=== PATIENT | female | born 1990 | race African-American/Black ===

== ENCOUNTER 2019-05-06 09:38 | Inpatient (IN) ==
[2019-05-06] MEDS ORDERED: ROMAZICON IV ONE (09:51)
--- NOTE | 2019-05-06 10:02 | PROVIDER DOCUMENTATION ---
HPI-General Adult - General Chief Complaint: Altered Mental Status Stated Complaint: UNRESPONSIVE Time Seen by Provider: 05/06/19 09:50 Source: EMS Allergies/Adverse Reactions: Patient Allergies Allergy/AdvReac Type Severity Reaction Status Date / Time No Known Allergies Allergy Verified 05/06/19 10:24 Home Medications: Home Medication List Medication Instructions Recorded Confirmed Last Taken Type Iron,Fm,Ps/Folic/B,C18/L.casei 1 tab PO DAILY 05/06/19 05/06/19 04/12/19 History [Fusion Plus Capsule] Labetalol HCl [Trandate] 1 tab PO BID 05/06/19 05/06/19 05/06/19 History - History of Present Illness -Gen Adult Nature of Presenting Problems: Brought in by EMS. Family had called since pt was unresponsive, suspect that she may have overdosed on Xanax. Does not have prescription for those, buys on the street. She is non verbal, thus has no complaints Review of Systems - Adult - REVIEW OF SYSTEMS - ADULT ROS:: unobtainable per condition Constitutional: reports: no symptoms reported Eyes: reports: no symptoms reported Neurological: reports: see HPI Past History - Adult - PAST MEDICAL HISTORY-ADULT Review of Records: reports: Medications Reviewed Major Childhood Illnesses: reports: denies history Cardiovascular: reports: denies history Respiratory: reports: denies history Gastrointestinal: reports: denies history Obstetrical/Gynecological: reports: denies history Genitourinary: reports: denies history Musculoskeletal: reports: denies history Neurological: reports: denies history Endocrine/Immune: reports: denies history Other Conditions: reports: denies history - PRIOR SURGERIES/PROCEDURES Surgical/Procedure History: reports: , hernia repair - IMMUNIZATION STATUS Childhood Immunizations: See Nurse Assessment Flu Vaccine: See Nurse Assessment - FAMILY HISTORY Family History: reviewed, not pertinent Physical Exam-General - PHYSICAL EXAM-ADULT Initial Vital Signs Reviewed: Yes - CONSTITUTIONAL General Appearance: appears well, mild distress - EYES Eyes: pink conjunctivae, other (pupils constricted, not pinpoint, no reaction to light) - HEAD, EARS, NOSE, MOUTH & THROAT HENMT: normocephalic/atraumatic, moist mucous membranes, normal ENT inspection, other (moves head when touched mouth with tongue depressor) - NECK Neck: full range of motion, supple - RESPIRATORY Respiratory: lungs clear, normal breath sounds, no respiratory distress, no accessory muscle use - CARDIOVASCULAR Cardiovascular: regular rate, rhythm, no edema, no murmur - GASTROINTESTINAL (ABDOMEN) Abdominal Exam: soft, other (mild suprapubic tenderness) - MUSCULOSKELETAL Extremity: non-tender, normal inspection, no pedal edema DTR: bicep (R): 2+, bicep (L): 2+, knee (R): 2+, knee (L): 2+, ankle (R): 2+, ankle (L): 2+ - SKIN Integumentary: normal color, normal turgor, warm/dry - NEUROLOGIC Neurologic: other (untestable, no response to verbal stimuli) - PSYCHIATRIC Psych/Mental Status: other (unresponsive to verbal stimuli) Progress - PLAN OF CARE/RESULTS Progress/Plan/Lab Results: Orders Category Date Time Status ALCOHOL BLOOD Stat Lab 05/06/19 09:51 Uncollected CBC WITH DIFF [HEME] Stat Lab 05/06/19 09:50 Uncollected COMPREHENSIVE METABOLIC PANEL [CHEM] Stat Lab 05/06/19 09:51 Uncollected URINALYSIS W/POSS RFLX CULT [URINALYSIS] Stat Lab 05/06/19 09:50 Uncollected URINE DRUG SCREEN Stat Lab 05/06/19 09:51 Uncollected Flumazenil [Romazicon] Med 05/06/19 09:51 Discontinued 0.2 mg IV NOW ONE Result Diagrams: 05/06/19 10:02 05/06/19 10:02 - REASSESSMENT Reassessment #1 Time Reassessed: 11:53 (pt has gone back to sleep, snoring) Reassessment #3 Time Reassessed: 14:30 (still very somulent) Status: unchanged Reassessment #2 Time Reassessed: 12:50 (vomited, will place NG) Status: worsening - EKG 1 Time of EKG reading by physician:: 09:45 EKG Read and Signed by:: Magdy Ordoñez EKG Interpretation (*Must complete 3 of following elements*): Abnormal Rate: 65 Rhythm: NSR QRS: normal AL Interval: normal ST Wave: normal Comments: prolonged QT Departure - Departure Date of Disposition Decision: 05/06/19 Time of Disposition Decision: 14:47 DIAGNOSIS: UTI (urinary tract infection) Accidental medication overdose Qualifiers: Encounter type: initial encounter Qualified Code(s): T50.901A - Poisoning by unspecified drugs, medicaments and biological substances, accidental (unintentional), initial encounter Disposition: ADMITTED INPATIENT 09 Certified Medical Emergency: Emergent Condition: Stable - Critical Care Note This patient required my direct & personal management of CC.: No Attestation - Physician/ WAYNE Attestation Patient care was provided by Advanced Practice Provider:: No The physician spent face to face time with patient:: Yes Advanced Practice Provider documentation review:: Supervising physician onsite and consulted in the evaluation and care of this patient. The physician did have a face to face encounter with the patient.
[2019-05-06 10:33] LABS: BASO# 0.01 X1000 (0.0-0.2); BASO% 0.2 % (0.0-0.8); EOS# 0.03 X1000 (0.0-0.7); EOS% 0.5 % (0.0-10.0); HEMATOCRIT 32.4 % (37.0-47.0); HEMOGLOBIN 10.2 g/dL (12.0-16.0); LYMPH# 0.93 X1000 (1.2-3.4); LYMPH% 14.6 % (20.5-51.1); MCH 25.8 PG (27-31); MCHC 31.5 g/dL (33-37); MONO# 0.24 X1000 (0.11-0.59); MONO% 3.8 % (1.7-9.3); MPV 10.4 FL (7.4-10.4); NEUT# 5.17 X1000 (1.4-6.5); NEUT% 80.9 % (42.2-75.2); PLT 421 X1000 (130-400); RBC 3.95 XMIL (4.2-5.4); RDW 14.5 % (11.5-14.5); WBC 6.38 X1000 (4.8-10.8)
[2019-05-06 10:34] LABS: BILIRUBIN URINE NEGATIVE (NEGATIVE); BLOOD URINE MODERATE (NEGATIVE); COLOR ORANGE; GLUCOSE URINE TRACE mg/dL (NEGATIVE); KETONE URINE NEGATIVE (NEGATIVE); LEUKOCYTES URINE MODERATE (NEGATIVE); NITRITE URINE NEGATIVE (NEGATIVE); PROTEIN URINE 200 mg/dL (NEGATIVE); SP GRAVITY URINE 1.019; TURBIDITY URINE TURBID (CLEAR); URINE SOURCE CATH; UROBILINOGEN URINE NORMAL (NORMAL)
[2019-05-06 10:35] LABS: AGAP 12; ALB/GLOB RATIO 1.7; ALKALINE PHOSPHATASE 90 U/L (32-104); BUN 9 mg/dL (8-22); CALCIUM 8.7 mg/dL (8.8-10.2); CHLORIDE 105 mmol/L (98-107); COSMO 280; CREATININE 1.1 mg/dL (0.5-0.9); ESTIMATED GFR > 60; GLUCOSE 125 mg/dL (70-104); GOT 21 U/L (10-30); GPT 14 U/L (10-36); POTASSIUM 4.3 mmol/L (3.5-5.1); SODIUM 140 mmol/L (136-145); TCO2 23 mmol/L (25-35); TOTAL BILIRUBIN 0.29 mg/dL (0.20-1.00); TOTAL PROTEIN 6.3 g/dL (6.3-8.3)
[2019-05-06 10:46] LABS: UR EPITHELIAL CELLS >10 /HPF (<10); URINE BACTERIA 1+ /HPF; URINE RBC <10 /HPF (<10); URINE WBC TNTC /HPF (<10)
[2019-05-06 11:24] LABS: UR AMPHETAMINES QUAL PRESUMPTIVE POSITIVE (NONE DETECT); UR BARBITUATES QUAL NONE DETECTED (NONE DETECT); UR BENZODIAZEPIN QUAL PRESUMPTIVE POSITIVE (NONE DETECT); UR CANNABINOIDS QUAL NONE DETECTED (NONE DETECT); UR COCAINE QUAL NONE DETECTED (NONE DETECT); UR METHADONE QUAL NONE DETECTED (NONE DETECT); UR OPIATES QUAL NONE DETECTED (NONE DETECT); UR OXYCODONE QUAL NONE DETECTED (NONE DETECT); UR PCP QUAL NONE DETECTED (NONE DETECT)
[2019-05-06] MEDS ORDERED: ROCEPHIN 1 GM in NS 50 ML IV ONE (11:54)
[2019-05-06] MEDS ORDERED: NS 1,000 ML IV ONE (11:54)
--- NOTE | 2019-05-06 12:06 | EKG Report ---
Test Performed on : 05/06/2019 09:44:56 AM Test Reason : ED. No order in [place] Blood Pressure : / mmHG Vent. Rate : 065 BPM Atrial Rate : 065 BPM P-R Int : 186 ms QRS Dur : 104 ms QT Int : 508 ms P-R-T Axes : 042 -19 -10 degrees QTc Int : 528 ms Normal sinus rhythm. Prolonged QT Abnormal ECG When compared with ECG of 22-MAR-2012 00:05, Vent. rate has decreased BY 40 BPM QRS duration has increased QT has lengthened Unconfirmed Result
--- NOTE | 2019-05-06 13:29 | Diag Imaging Result Doc PS360 ---
EXAM: KUB ABDOMEN 05/06/2019 HISTORY: ng placement TECHNIQUE: AP portable semiupright at 1318 COMMENT: There is an NG tube with its tip in the left upper quadrant presumably in the stomach. The heart size appears enlarged. IMPRESSION: NG tube in the stomach. Electronically signed by Addi Young 05/06/2019 1:26 PM
[2019-05-06] MEDS ORDERED: NS 1,000 ML IV SCH (15:33)
[2019-05-06] MEDS ORDERED: APRESOLINE IV PRN ×2 (15:33→16:09)
[2019-05-06] MEDS ORDERED: ZOFRAN IV PRN (15:33)
[2019-05-06 15:57] LABS: ALLEN TEST YES; BE -1.6 mmoll (-3.0-3.0); BLOOD TYPE ARTERIAL; HCO3-(ACT) 23.6 mmoll (20.0-26.0); METHB 1.1 % (0.0-1.5); O2(CT) 13.5 mL/dL (15.0-23.0); O2HB 94.1 % (95.0-99.0); PCO2(98.6) 37 mmHg (35-45); PO2(98.6) 78 mmHg (60-100); SAMPLE BLOOD; THB 10.1 g/dL (11.5-17.4)
[2019-05-06 15:58] LABS: MODALITY ROOM AIR
[2019-05-06] MEDS: NS 1,000 ML IV SCH (16:08)
[2019-05-06] MEDS ORDERED: ATIVAN IV PRN (16:10)
[2019-05-06 16:45] LABS: URINE SOURCE CATH
[2019-05-06 16:47] LABS: BILIRUBIN URINE NEGATIVE (NEGATIVE); BLOOD URINE TRACE (NEGATIVE); COLOR YELLOW; GLUCOSE URINE NEGATIVE (NEGATIVE); KETONE URINE NEGATIVE (NEGATIVE); LEUKOCYTES URINE TRACE (NEGATIVE); NITRITE URINE NEGATIVE (NEGATIVE); PH URINE 7.5; PROTEIN URINE 100 mg/dL (NEGATIVE); SP GRAVITY URINE 1.016; TURBIDITY URINE CLEAR (CLEAR); UROBILINOGEN URINE NORMAL (NORMAL)
[2019-05-06 16:50] LABS: UR EPITHELIAL CELLS >10 /HPF (<10); URINE BACTERIA 1+ /HPF; URINE RBC <10 /HPF (<10)
[2019-05-06 16:55] LABS: URINE CASTS GRANULAR PRESENT; URINE CRYSTALS NONE SEEN; URINE SMALL ROUND CELLS TRANS PRESENT; URINE YEAST NONE SEEN
--- NOTE | 2019-05-06 20:25 | HISTORY AND PHYSICAL ---
PRIMARY CARE PROVIDER: Unknown. CHIEF COMPLAINT: Per ED records, the patient took 1 Xanax. HISTORY OF PRESENT ILLNESS: Per EMR. The patient was brought in by EMS. Family had to call since the patient was unresponsive. I believe she overdosed on Xanax. She does not have a prescription, but she buys them on the street. On workup in the ED, she was positive for amphetamines and benzodiazepines. They placed an NG tube and gave her activated charcoal as well as a dose of Romazicon. She briefly came around, but went right back to sleep. She has been observed in the ER for almost 5 hours and continues to be sleepy. She was also noted to have a urinary tract infection and was given IV Rocephin. We will admit her to the ICU. Watch her airway closely. She will wake up to tactile stimuli; however, she does not really answer any questions. There is no family at bedside. PAST MEDICAL HISTORY: Unknown. PAST SURGICAL HISTORY: Unknown. FAMILY HISTORY: Unknown. SOCIAL HISTORY: Unknown. HOME MEDICATIONS: Unknown. ALLERGIES: No known drug allergies. PHYSICAL EXAMINATION: VITAL SIGNS: No temperature has been taken. Heart rate 70, respirations 24, blood pressure 170/106. O2 is 98% on 2 L nasal cannula. GENERAL: Ms. Macias is a lethargic 28-year-old female who is sitting up in the bed with an NG tube in place. She does arouse to tactile stimuli. She does not really answer any questions or follow commands. She just falls back asleep. When I took the covers off her, she did try to recover herself, and she did tell me that she only took 1 whole bar of Xanax, and then she would go back to sleep and did not answer any further questioning. HEENT: Atraumatic, normocephalic. PERRL. NECK: Supple. Trachea midline. CARDIOVASCULAR: S1, S2 appreciated. No murmurs, gallops, rubs noted. RESPIRATORY: Lung sounds clear bilaterally. GI: Soft, nontender, nondistended. Positive bowel sounds in 4 quadrants. LOWER EXTREMITIES: Negative for edema. Bilateral pedal pulses were palpable. NEUROLOGICAL: Lethargic, and does not really follow any commands or answer any questions secondary to being lethargic. DIAGNOSTIC DATA: Abdominal x-ray showed NG tube in the stomach. EKG normal sinus rhythm with a prolonged QT. Her QTc was 528. LABORATORY DATA: Tox screen positive for amphetamines and benzodiazepines. CBC: White count 6, hemoglobin and hematocrit 10 and 32, platelet count is 421. Chemistry: Sodium 140, potassium 4.3, BUN 9, creatinine 1.1, blood glucose 125. Urinalysis showed 1+ bacteria, [id number]-[id number]- count WBCs, moderate leukocytes, negative for nitrites. ASSESSMENT AND PLAN: 1. Accidental overdose, per patient report, on 1 bar of Xanax. She does not have a prescription of these. She buys them off the street. She was also positive for amphetamines. They did do activated charcoal call as well as Romazicon. The patient briefly came around. She has been protecting her airway; however, after 5 hours of being in the ED, she has not come around. We will admit her to the ICU and observe her closely and continue with IV hydration. 2. Urinary tract infection. We will continue with IV Rocephin. 3. Acute kidney injury. We will continue with IV fluids. 4. Hypertension. We will do Apresoline IV p.r.n. with parameters. 5. Further recommendation to follow physician evaluation, laboratory and diagnostic data. Dictated by BO Sun for Haroon Evangelista MD cc: Haroon Evangelista MD
--- NOTE | 2019-05-06 20:48 | HISTORY AND PHYSICAL ---
ADDENDUM: Patient seen and evaluated at the bedside. All the vital signs, images, and lab work were reviewed. Patient presented to the emergency department after taking some Xanax, and it looks like she overdosed. As per the patient, she normally does not take Xanax at home, and those pills are not hers. She does have a history of hypertension and recently she had a , it looks like 2 weeks ago. They did a due to hypertension during . She is sleepy, but arousable. She seems to be weak, but she is oriented and answering my questions. She is following commands as well. We will continue for now with IV fluids. I am not going to put her on a diet at this moment because she is really sleepy. Once she is more awake, we can do a bedside swallow with ice chips and then put her on a diet. Her urine has some bacteria and leukocytes. I am not sure if she is complaining of dysuria at this moment, but a urine culture has been done and she has been placed on ceftriaxone. As per the patient, she feels overwhelmed at home and she wanted to be more relaxed, but she denied any suicidal ideation, and this is the first time that she has taken the Xanax. We will monitor this patient in the ICU. We will use blood pressure medication as needed. We will continue with IV fluids, around 125 mL/hour. I will add Ativan for the possibility of seizures, but I do not think she is going to have this kind of problem, and I will continue with her medications once I am sure that she is going to tolerate p.o. I will check again a CBC and CMP in the morning as well as electrolytes. She does have an acute kidney injury that hopefully will get better with IV fluids. Urine toxicology showed amphetamine and benzodiazepine as well. cc: Haroon Evangelista MD
[2019-05-07] MEDS: NS 1,000 ML IV SCH (03:19)
[2019-05-07 05:22] LABS: BASO# 0.01 X1000 (0.0-0.2); BASO% 0.1 % (0.0-0.8); EOS# 0.23 X1000 (0.0-0.7); HEMATOCRIT 29.7 % (37.0-47.0); HEMOGLOBIN 9.2 g/dL (12.0-16.0); IMM GRAN# 0.02 X1000 (0.0-0.04); IMM GRAN% 0.3 % (0.0-0.5); LYMPH# 1.58 X1000 (1.2-3.4); LYMPH% 20.9 % (20.5-51.1); MCH 25.6 PG (27-31); MCV 82.5 FL (81-99); MONO# 0.43 X1000 (0.11-0.59); MONO% 5.7 % (1.7-9.3); MPV 10.1 FL (7.4-10.4); PLT 401 X1000 (130-400); RDW 14.9 % (11.5-14.5); WBC 7.57 X1000 (4.8-10.8)
[2019-05-07 05:57] LABS: AGAP 16; ALB/GLOB RATIO 1.3; ALBUMIN 3.4 g/dL (3.5-5.0); ALKALINE PHOSPHATASE 76 U/L (32-104); BUN 7 mg/dL (8-22); CALCIUM 8.6 mg/dL (8.8-10.2); CHLORIDE 114 mmol/L (98-107); COSMO 297; CREATININE 0.9 mg/dL (0.5-0.9); ESTIMATED GFR > 60; GLUCOSE 81 mg/dL (70-104); GOT 20 U/L (10-30); GPT 14 U/L (10-36); MAGNESIUM 1.7 mg/dL (1.5-2.7); POTASSIUM 3.3 mmol/L (3.5-5.1); SODIUM 151 mmol/L (136-145); TCO2 21 mmol/L (25-35); TOTAL BILIRUBIN 0.15 mg/dL (0.20-1.00)
[2019-05-07] MEDS ORDERED: D5W 1,000 ML IV SCH ×2 (07:00→14:30)
[2019-05-07] MEDS ORDERED: KLOR-CON PO ONE (07:14)
--- NOTE | 2019-05-07 07:35 | Diag Imaging Result Doc PS360 ---
EXAM: CHEST-PORTABLE 05/07/2019 HISTORY: follow up TECHNIQUE: AP portable at 0524 COMMENT: There is an NG tube with its tip below the diaphragm. There is cardiomegaly. The inspiration is suboptimal. Compared to 03/22/2012 there has been no significant change. IMPRESSION: Stable chest. Electronically signed by Addi Young 05/07/2019 7:32 AM
[2019-05-07] MEDS: TRANDATE PO SCH ×2 (08:02→22:21)
[2019-05-07] MEDS: CENTRUM SILVER PO SCH (08:02)
--- NOTE | 2019-05-07 09:17 | PROGRESS NOTE ---
DATE: 05/07/2019 SUBJECTIVE: This patient seems to be more awake. She is oriented x3. She recognized that she took Xanax. She denies she denied any other drugs. She has never been prescribed with Xanax before, and actually it looks like this that medication does not belong to her. Her vital signs are stable, a little bit hypertensive. I will put this patient back on her labetalol and multivitamin, I will remove the NG tube and I will put her on a full liquid diet. I will switch the normal saline for D5 W since this patient is hypernatremic. She is also hypokalemic I will replace the potassium. As per the patient, she was mad and she was trying to down and that is why she took the Xanax but she never had any suicidal ideation. OBJECTIVE: Vital Signs: Temperature 98.3 degrees, pulse 80, respiratory rate 16, blood pressure 161/99, oxygen saturation 98 on room air. HEENT: Head normocephalic. No trauma. PERRLA. Neck: Supple. No JVD. No masses. Central trachea. Chest: Clear to auscultation. No wheezing. No rales. Abdomen: Soft. Some discomfort to palpation at the level of the epigastric area. She has a suprapubic wound from recent that looks clean, dry, and intact. Neurological: The patient is a bit sleepy but arousable. She is oriented x3. She when she was talking to me she was alert. She is following commands. No focal deficits. LABORATORY: WBC 7.5, hemoglobin 9.2, hematocrit 29.7, platelets 401,000. Sodium 151, potassium 3.3, chloride 114, bicarbonate 21, BUN 7, creatinine 0.9, glucose 81 calcium 8.6, magnesium 1.7. AST 20, ALT 14, alkaline phosphatase 76, albumin 3.4. ASSESSMENT AND PLAN: 1. Accidental overdose per patient report on 1 bar of Xanax, like I mentioned before, she does not have a prescription for these, she was also positive for amphetamine. They did activated charcoal as well as Romazicon in the emergency department, but she seems to be more awake and she is oriented x3. No focal deficits. She was admitted to the ICU and she spent a good night, no issues. The sodium level is high and the potassium level is a little bit low, so I will try to correct them, I will stop the normal saline and I will put her on D5W and I will start her home medications, labetalol and vitamins. 2. Possible urinary tract infection. Recently she had a , for now we will continue with Rocephin. 3. Acute kidney injury. Continue with IV fluids this is getting better. Actually BUN 7 and creatinine 0.9, within normal limits. 4. Hypernatremia. I will put this patient on a diet, full liquid diet, and also I will start D5W, let us see how she does. 5. Hypokalemia I will replace it. 6. Toxic encephalopathy due to accidental overdose, resolved. 7. Hypertension. Continue with p.r.n. medications and I have started this patient on her home medications, labetalol. 8. I will re-evaluate a BMP in the afternoon. If she is eating okay and she is not having any kind of issues, probably this patient can be discharged home. Otherwise, probably will be in the morning. cc: Haroon Evangelista MD
[2019-05-07] MEDS: ROCEPHIN 1 GM in NS 50 ML IV SCH (12:08)
[2019-05-07 15:09] LABS: AGAP 14; BUN 5 mg/dL (8-22); CHLORIDE 101 mmol/L (98-107); COSMO 269; CREATININE 0.8 mg/dL (0.5-0.9); ESTIMATED GFR > 60; GLUCOSE 90 mg/dL (70-104); POTASSIUM 3.3 mmol/L (3.5-5.1); SODIUM 136 mmol/L (136-145); TCO2 21 mmol/L (25-35)
[2019-05-07] MEDS: POTASSIUM CHLORIDE 20 MEQ in 1/2 NS 1,000 ML IV SCH (15:52)
[2019-05-08] MEDS: POTASSIUM CHLORIDE 20 MEQ in 1/2 NS 1,000 ML IV SCH (03:04)
[2019-05-08 06:20] LABS: BASO# 0.01 X1000 (0.0-0.2); BASO% 0.1 % (0.0-0.8); EOS# 0.28 X1000 (0.0-0.7); EOS% 3.9 % (0.0-10.0); HEMATOCRIT 28.5 % (37.0-47.0); HEMOGLOBIN 9.2 g/dL (12.0-16.0); LYMPH# 2.05 X1000 (1.2-3.4); LYMPH% 28.7 % (20.5-51.1); MCH 26.5 PG (27-31); MCHC 32.3 g/dL (33-37); MCV 82.1 FL (81-99); MONO# 0.49 X1000 (0.11-0.59); MONO% 6.9 % (1.7-9.3); MPV 10.5 FL (7.4-10.4); NEUT# 4.32 X1000 (1.4-6.5); NEUT% 60.4 % (42.2-75.2); PLT 393 X1000 (130-400); RBC 3.47 XMIL (4.2-5.4); RDW 14.7 % (11.5-14.5); WBC 7.15 X1000 (4.8-10.8)
[2019-05-08 06:30] LABS: AGAP 14; BUN 4 mg/dL (8-22); CALCIUM 8.2 mg/dL (8.8-10.2); CHLORIDE 106 mmol/L (98-107); COSMO 281; CREATININE 0.9 mg/dL (0.5-0.9); ESTIMATED GFR > 60; GLUCOSE 89 mg/dL (70-104); POTASSIUM 3.1 mmol/L (3.5-5.1); SODIUM 143 mmol/L (136-145); TCO2 23 mmol/L (25-35)
[2019-05-08] MEDS ORDERED: KLOR-CON PO ONE (07:06)
[2019-05-08 08:05] VITALS: BP 179/92
--- NOTE | 2019-05-08 08:59 | Diag Imaging Result Doc PS360 ---
EXAM: US RENAL 2 (RETROPER) COMPLETE 05/08/2019 HISTORY: Low urinary output TECHNIQUE: Renal ultrasound COMMENT: There is no evidence of hydronephrosis or mass and the urinary bladder is not distended. The right kidney is 12 x 5.3 x 5.5 cm. The left is 12 x 6 x 6.7 cm. Both kidneys are apparently normal in echogenicity. Compared to 12/17/2011 the appearance of the kidneys has not changed significantly. IMPRESSION: No evidence of obstructive uropathy. Electronically signed by Addi Young 05/08/2019 8:57 AM
[2019-05-08] MEDS: ROCEPHIN 1 GM in NS 50 ML IV SCH (09:21)
[2019-05-08] MEDS: TRANDATE PO SCH (09:21)
[2019-05-08] MEDS: CENTRUM SILVER PO SCH (09:21)
--- NOTE | 2019-05-08 13:57 | DISCHARGE SUMMARY ---
ADMISSION DATE: 05/06/2019 DISCHARGE DATE: 05/08/2019 DISCHARGE DIAGNOSES: 1. Accidental overdose per patient report with Xanax. 2. Acute kidney injury resolved. 3. Hypernatremia resolved. 4. Hypokalemia. 5. Toxic encephalopathy due to accidental overdose, resolved. 6. Hypertension. PROCEDURES PERFORMED: Abdomen x-ray dated 05/06/2019 impression, NG tube in the stomach. Chest x- ray dated 05/15/2019 impression, stable chest. Renal ultrasound dated 05/08/2019 impression no evidence of obstructive uropathy. HOSPITAL COURSE: A 28-year-old female past medical history of hypertension. She recently had a C- section like 2 weeks ago, was brought to the emergency department by EMS, the family had to call since the patient was unresponsive, as per the patient she took Xanax. She does not have a prescription for that. Workup in the emergency department was positive for amphetamine and benzodiazepine. They placed an NG tube and gave her activated charcoal as well as a dose of Romazicon, she briefly came around but she went right back to sleep, they kept the patient in the ER for at least 5 hours and she continues to be sleepy. They thought that this patient may have a urinary tract infection and they started Rocephin but the cultures were negative and she is not complaining of any symptoms. She was admitted to the ICU also because she was encephalopathic, she receive IV fluids during the night, her BUN and creatinine improved by this patient's urine output was low so we decided to transfer this patient to the medical floor. We removed the NG tube. We started this patient on a diet but again the urine output was not that good, we ordered a renal ultrasound that did not show any obstructive uropathy and she started to have more urine. Today she is feeling better. She will be discharged home. She denied any suicidal ideation, apparently she was mad at home and she wanted to calm down herself. PHYSICAL EXAMINATION: Vital signs: Temperature 98.1 degrees, pulse 63, respiratory rate 16, blood pressure 179/92, oxygen saturation 97 on room air. HEENT: Head normocephalic. No trauma. PERRLA. Neck: Supple. No JVD. No masses. Central trachea. Chest: Clear to auscultation. No wheezing, no rales. Abdomen: Soft, nontender. She does have a new wound at the level of the suprapubic area from recent with no signs of infection, no drainage. Extremities: No edema, no clubbing, no cyanosis. Neurologic: The patient is alert. She is oriented x3. No focal deficits. LABORATORY: WBC 7.1, hemoglobin 9.2, hematocrit 28.5, platelets 393,000. Sodium 143, potassium 3.1, chloride 106, bicarbonate 23, BUN 4, creatinine 0.4, glucose 89, calcium 8.2. DISCHARGE MEDICATIONS: Basically this patient will continue with her home medications, multivitamin 1 tablet p.o. daily and labetalol HCl 300 mg p.o. twice a day. FOLLOWUP: She will need to follow with her primary care doctor in 1 week. cc: Haroon Evangelista MD
== END 2019-05-08 10:06 | disposition home or self-care (01) | DRG 776 ==
LOC: ED 09:38 → ICU 14:42 → 1N 05-07 17:53
PROVIDERS: ATTEND Internal Medicine